=== PATIENT | female | born 2000 | race Caucasian/White ===

== ENCOUNTER 2020-11-08 03:53 | Emergency (ER) | payer OTHER ==
[~2020-11-08] VITALS: Ht 160 cm; Wt 61.0 kg
[2020-11-08] MEDS ORDERED: VENTOLIN HFA18 GM INH (04:06)
[2020-11-08] MEDS ORDERED: LEVALBUTER0.31 MG/3 INH (04:07)
[2020-11-08] MEDS ORDERED: PREDNISONE20 MG PO (04:47)
--- NOTE | 2020-11-08 13:51 | EKG ---
[facility] [address] [facility] [place] [address] Signed Normal sinus rhythm Normal ECG No previous ECGs available Confirmed by SHANNAN HERRERA MD ([id number] on 11/08/2020 1:50:56 PM Electronically Signed By: SHANNAN HERRERA MD 11/08/20 135 PATIENT NAME: EDEL WYNNE Electrocardiogram DATE OF : [birth year] PHYSICIAN: SHANNAN HERRERA MD REPORT #: [id number] REPORT IS CONFIDENTIAL AND NOT TO BE RELEASED WITHOUT AUTHORIZATION
== END 2020-11-08 05:25 | disposition home or self-care (01) ==
LOC: ED 03:53
DX: J45.901 Unspecified asthma with (acute) exacerbation (principal)
CPT/HCPCS: 93005; 93010; 94640; 99285-25; J7512